=== PATIENT | male | born 1955 | race Caucasian/White ===

== ENCOUNTER 2023-07-16 07:53 | Outpatient (RCR) | payer OTHER, SELFPAY | END 2023-07-16 23:59 | disposition home or self-care (01) | LOC: RPT 07:53 | PROVIDERS: ATTENDING PHYSICIAN Physical Medicine & Rehabilitation; FAMILY PHYSICIAN Family Medicine | DX: I69.320 Aphasia following cerebral infarction (principal); R13.12 Dysphagia, oropharyngeal phase; Z73.6 Limitation of activities due to disability | CPT/HCPCS: 92507; 97530; 97535 ==

== ENCOUNTER → 2023-08-02 13:55 | Outpatient (REF) | payer OTHER, SELFPAY | LOC: RAD 13:55 | PROVIDERS: ATTENDING PHYSICIAN Surgery Vascular Surgery; FAMILY PHYSICIAN Family Medicine | DX: I77.9 Disorder of arteries and arterioles, unspecified (principal) | CPT/HCPCS: 93880; 93922; 93925 ==

== ENCOUNTER 2023-08-17 07:42 | Outpatient (RCR) | payer OTHER, SELFPAY | END 2023-08-17 23:59 | disposition home or self-care (01) | LOC: RPT 07:42 | PROVIDERS: ATTENDING PHYSICIAN Physical Medicine & Rehabilitation; FAMILY PHYSICIAN Family Medicine | DX: I69.320 Aphasia following cerebral infarction (principal); I69.391 Dysphagia following cerebral infarction; R13.12 Dysphagia, oropharyngeal phase | CPT/HCPCS: 92507; 97110; 97530 ==

== ENCOUNTER 2023-09-14 06:39 | Outpatient (RCR) | payer OTHER, SELFPAY | END 2023-09-14 23:59 | disposition home or self-care (01) | LOC: RPT 06:39 | PROVIDERS: ATTENDING PHYSICIAN Physical Medicine & Rehabilitation; FAMILY PHYSICIAN Family Medicine | DX: I63.9 Cerebral infarction, unspecified (principal); Z74.09 Other reduced mobility | CPT/HCPCS: 92507; 97110; 97530; 97535 ==

== ENCOUNTER 2023-10-01 06:58 | Outpatient (RCR) | payer OTHER, SELFPAY | END 2023-10-01 23:59 | disposition home or self-care (01) | LOC: RPT 06:58 | PROVIDERS: ATTENDING PHYSICIAN Physical Medicine & Rehabilitation; FAMILY PHYSICIAN Family Medicine | DX: I69.320 Aphasia following cerebral infarction (principal); R13.12 Dysphagia, oropharyngeal phase; Z73.6 Limitation of activities due to disability | CPT/HCPCS: 92507; 97110; 97535 ==

== ENCOUNTER → 2023-10-15 12:07 | Outpatient (REF) | payer OTHER, SELFPAY | LOC: PET 12:07 | PROVIDERS: ATTENDING PHYSICIAN Urology | DX: C61 Malignant neoplasm of prostate (principal) | CPT/HCPCS: 78815; A9595 ==

== ENCOUNTER 2023-11-19 06:47 | Outpatient (RCR) | payer OTHER, SELFPAY | END 2023-11-19 11:34 | disposition home or self-care (01) | LOC: RPT 06:47 | PROVIDERS: ATTENDING PHYSICIAN Physical Medicine & Rehabilitation; FAMILY PHYSICIAN Family Medicine | DX: I69.320 Aphasia following cerebral infarction (principal); R13.12 Dysphagia, oropharyngeal phase; Z73.6 Limitation of activities due to disability | CPT/HCPCS: 92507; 97010; 97110; 97530; 97535 ==

== ENCOUNTER → 2023-12-06 06:23 | Day surgery (SDC) | payer OTHER, SELFPAY ==
[2023-12-06 07:41] LABS: Glucose - Point of Care 143 mg/dl (70-99)
== END ==
LOC: GI 06:23
PROVIDERS: ATTENDING PHYSICIAN Internal Medicine
DX: Z12.11 Encounter for screening for malignant neoplasm of colon (principal); K57.30 Diverticulosis of large intestine without perforation or abscess without bleeding; K64.8 Other hemorrhoids; K63.5 Polyp of colon; K62.1 Rectal polyp; D12.3 Benign neoplasm of transverse colon; D12.5 Benign neoplasm of sigmoid colon; Z86.010 Personal history of colon polyps
CPT/HCPCS: 45385; 45380; 88305; 82962

== ENCOUNTER → 2023-12-07 07:20 | Outpatient (REF) | payer OTHER, SELFPAY | LOC: MRI 3T 07:20 | PROVIDERS: ATTENDING PHYSICIAN Family Medicine; REFERRING PHYSICIAN Urology | DX: R97.20 Elevated prostate specific antigen [PSA] (principal) | CPT/HCPCS: 72197; A9575 ==

== ENCOUNTER 2024-03-01 16:25 | Emergency (ER) | payer OTHER, SELFPAY ==
[2024-03-01 16:27] VITALS: BP 129/78
[2024-03-01 16:46] VITALS: BP 116/66
[2024-03-01 17:00] VITALS: BP 95/58
[2024-03-01 17:33] LABS: % Basophils 0.5 % (0-2); % Eosinophils 3.1 % (0-6); % Immature Granulocytes 0.5 % (0-0.5); % Lymphocytes 11.8 % (20.5-51.1); % Monocytes 10.6 % (1.7-9.3); % Neutrophils 73.5 % (42.2-75.2); Absolute Eosinophils 0.2 10^3/uL (0-0.7); Absolute Lymphocytes 0.7 10^3/uL (1.2-3.4); Absolute Monocytes 0.6 10^3/uL (0.1-0.6); Absolute Neutrophils 4.3 10^3/uL (1.4-6.5); Hemoglobin 11.3 g/dL (13.0-18.0); Mean Corp Hgb Conc. 34.2 g/dL (33.0-37.0); Mean Corpuscular Hgb 31.5 pg (27.0-31.0); Mean Corpuscular Volume 91.9 fL (80.0-94.0); Mean Platelet Volume 11.2 fL (7.4-10.4); Nucleated Red Blood Cells % 0 % (-); Platelet Count 139 10^3/uL (130-400); Red Blood Cell Count 3.59 10^6/uL (4.70-6.10); Red Cell Dist. Width 15.1 % (11.5-14.5); White Blood Cell Count 5.9 10^3/uL (4.8-10.8)
[2024-03-01 17:52] LABS: ALT (SGPT) 27 U/L (0-50); AST (SGOT) 30 U/L (17-59); Albumin 3.9 g/dl (3.5-5.0); Alkaline Phosphatase 69 U/L (38-126); Blood Urea Nitrogen 21 mg/dl (9-20); Calcium 9.9 mg/dl (8.4-10.2); Carbon Dioxide 26 mmol/L (22-30); Chloride 102 mmol/L (98-107); Glucose 117 mg/dl (70-99); Potassium 4.2 mmol/L (3.5-5.1); Sodium 139 mmol/L (135-145); Total Bilirubin 0.5 mg/dl (0.2-1.3); eGFR > 60.00
[2024-03-01 17:57] LABS: Troponin I 0.019 ng/ml
[2024-03-01 18:00] VITALS: BP 122/84
[2024-03-01 19:00] VITALS: BP 141/59
--- NOTE | 2024-03-01 19:04 | ED.GENMED ---
History of Present Illness
General
Chief Complaint: Fainting/Passed Out
Source: patient, records and spouse
Exam Limitations: none
Time Seen by Provider: 03/01/24 18:33
Nursing documentation reviewed up to this point in time: agreed with
History of Present Illness
History of Present Illness:
Patient is a 68-year-old male who presents to the emergency department after syncopal episodes today. Patient had a stroke 13 months ago and since that time he has had some light sensitivity issues. Patient is out of the sunlight and began to feel
lightheaded. Patient denies diaphoresis or nausea or vomiting. Patient denies any chest pain or palpitations. Patient denied any focal neurologic feelings. Patient was recently put on tamsulosin. Patient is receiving daily radiation for cancer
therapy. Patient also had a estrogens shot. Patient denies any recent fever, chills, nasal congestion, sore throat or cough. Patient denies any GI or symptoms. Patient is also on losartan and metoprolol.
Past History
Past History
ED Past Medical History: Arrthythmia (Atrial fibrillation), CAD, HTN, Hypercholesterolemia, NIDDM, OR and Other (Peripheral vascular disease)
ED Past Surgical History: Appendectomy, Cardiac, Tonsilectomy and Other (Popliteal stent)
Social History
Tobacco: Smoker
Alcohol: None
Personal:
Living: with family
Employment: Employed
Family History
Family History: Other (Reviewed and noncontributory)
Review of Systems
Review of Systems
All Other Systems: ROS reviewed and negative except as documented in HPI and ROS
Constitutional: Reports fatigue; Denies fever or chills
EENT: Reports no symptoms
Respiratory: Reports no symptoms
Cardiac: Reports syncope; Denies chest pain, diaphoresis or palpitations
ABD/GI: Reports anorexia; Denies abdominal pain, nausea, vomiting, diarrhea, bloody stools or black stools
: Reports no symptoms
Musculoskeletal: Reports no symptoms
Skin: Reports no symptoms
Neurological: Reports no symptoms
Hematologic/Lymphatic: Reports no symptoms
Psychiatric: Reports no symptoms
Phy Exam
Physical Exam
Physical Exam:
Physical Exam
General: No apparent distress, alert and appropriate, well nourished, well hydrated
HENT: Normocephalic, supple with no lymphadenopathy, no thyromegaly
Eyes: Clear sclera, conjuctiva without injection
Heart: Regular rhythm and rate. No S3, S4. No murmur. No NVD
Lungs: No respiratory distress, no stridor, lung sounds clear and equal bilaterally
Abdomen: Soft, nontender, no organomegaly, no CVA tenderness, BS good
Neuro: Alert and oriented x 3, CN II - XII intact, no motor focality
Skin: no rash
Psychiatric: well kept. interactive and cooperative
Extremities: No edema, cyanosis, tenderness
Course
Orders/Labs/Results
Orders:
Orders
03/01/24 17:22
Electrocardiogram (*1) Urgent
Reason for Study: Syncope
EKG- Treatment ONCE
03/01/24 17:25
CMP [Comprehensive Metabolic Panel] Urgent
Complete Blood Count/With Diff Urgent
Troponin I Urgent
Abnormal Lab Results
03/01/24
17:25
RBC 3.59 L 10^6/uL
(4.70-6.10)
Hgb 11.3 L g/dL
(13.0-18.0)
Hct 33.0 L %
(39.0-52.0)
MCH 31.5 H pg
(27.0-31.0)
RDW 15.1 H %
(11.5-14.5)
MPV 11.2 H fL
(7.4-10.4)
Absolute Lymphs (auto) 0.7 L 10^3/uL
(1.2-3.4)
Lymphocytes % 11.8 L %
(20.5-51.1)
Monocytes % 10.6 H %
(1.7-9.3)
BUN 21 H mg/dl
(9-20)
Glucose 117 H mg/dl
(70-99)
Total Protein 6.0 L g/dl
(6.3-8.2)
03/01/24 17:25
03/01/24 17:25
Vital Signs
Initial and Last Documented VS:
Initial Vital Signs
Temp Pulse Resp BP Pulse Ox
99.3 F 71 16 129/78 98
03/01/24 16:27 03/01/24 16:27 03/01/24 16:27 03/01/24 16:27 03/01/24 16:27
Last Documented Vital Signs
Temp Pulse Resp BP Pulse Ox
99.3 F 59 18 122/84 99
03/01/24 16:27 03/01/24 18:15 03/01/24 18:15 03/01/24 18:00 03/01/24 18:15
*Radiology
Radiology exam reviewed: other (na)
*Pulse Oximetry
Patient hypoxic: no
*EKG
Interpreted by ED Provider?: Yes
EKG Intrepretation Date: 03/01/24
EKG Intrepretation Time: 19:11
Interpretation: abnormal
Comparison EKG: no changes
Heart Rate: 58
Rate: bradycardiac
Rhythm: sinus
[place]: normal axis
Interval: normal interval
QRS Pattern: right bundle branch block
Ischemia: non-specific ST changes
*[employer] Administrator Interpretation
Rate: normal
Interpretation: normal
Heart Rate: 61
Rhythm: sinus
*Critical Care Note
Total Time (30-74mins, 75-104mins- exclusive of procedures): Not Applicable
Update Note
Update Note:
Patient is on losartan 25 mg as well as metoprolol 25 mg and recently started on tamsulosin. Patient stated tamsulosin this morning. Patient does not eat or drink much before radiation every day. Patient's been encouraged to increase fluid.
Patient is currently cut his metoprolol in half and take the tamsulosin at bedtime. Believe the syncope is due to overmedication and dehydration.
ED Attending Note
-
Portions of this chart may have been created with voice recognition software.� Occasional wrong word or��sound alike� substitutions may have occurred due to the inherent limitations of voice recognition software.
Discharge Plan
Departure
Patient Disposition: Home (Routine Discharge)
Date of Disposition: 03/01/24
Time of Disposition: 19:14
Patient with high blood pressure during this ER visit?: No
Condition: Good
Covid-19: Not Applicable
Discharge Problem:
Syncope
Instructions: Syncope (Fainting) (DC)
Prescriptions:
No Action
acetaminophen 325 mg Tablet
650 mg PO Q6HPRN PRN (Reason: mild pain/ fever>100.5F) Qty: 0 0RF
lidocaine 4 % Adhesive Patch,Medicated
1 patch topical DAILY Qty: 30 0RF
multivitamin with folic acid [Tab-A-Terry] 400 mcg Tablet
1 tab PO DAILY Qty: 30 0RF
pantoprazole 20 mg Tablet,Delayed Release (Dr/Ec)
20 mg PO DAILY Qty: 30 0RF
atorvastatin 40 mg Tablet
40 mg PO QPM Qty: 30 0RF
metformin 500 MG tablet
500 mg PO BID@0800,1700 Qty: 60 0RF
Rx Instructions:
E11.65
clopidogrel 75 mg tablet
75 mg PO DAILY Qty: 30 0RF
metoprolol succinate 25 MG tablet extended release 24 hr
12.5 mg PO DAILY Qty: 30 0RF
Patient Comments:
resume on 02/10/23 until seen by cardiology, has been bradycardic
Eliquis 5 mg Tablet
5 mg PO BID Qty: 60 0RF
Referrals:
UNKNOWN - PT DOES,NOT KNOW [Unknown Provider] -
Activity Restrictions/Additional Instructions:
Take the tamsulosin before bed. Take metoprolol 12.5 mg. Make sure to drink plenty of fluids. Any problems please return.
Interventions
Interventions:
*Risk Screen - Suicide Last Done: 03/01/24 16:25
*General Assessment Last Done: 03/01/24 16:27
ED- Fall Risk Assessment Last Done: 03/01/24 16:27
*ED COVID-19 Vaccine History Last Done: 03/01/24 16:27
ED- Cardiac Assessment Last Done: 03/01/24 18:29
ED- Neurological Assessment Last Done: 03/01/24 18:29
Discharge Date and Time
Print Language: SWEDISH
== END 2024-03-01 20:04 | disposition home or self-care (01) ==
LOC: EMR 16:25
PROVIDERS: EMERGENCY PHYSICIAN Emergency Medicine; FAMILY PHYSICIAN Family Medicine
DX: R55 Syncope and collapse (principal); I48.91 Unspecified atrial fibrillation; I25.10 Atherosclerotic heart disease of native coronary artery without angina pectoris; I10 Essential (primary) hypertension; E78.00 Pure hypercholesterolemia, unspecified; E11.51 Type 2 diabetes mellitus with diabetic peripheral angiopathy without gangrene; I25.2 Old myocardial infarction; I45.10 Unspecified right bundle-branch block; F17.200 Nicotine dependence, unspecified, uncomplicated; Z86.73 Personal history of transient ischemic attack (TIA), and cerebral infarction without residual deficits; Z90.49 Acquired absence of other specified parts of digestive tract; Z95.5 Presence of coronary angioplasty implant and graft
CPT/HCPCS: 99283; 80053; 84484; 85025; 93005

== ENCOUNTER → 2024-04-10 12:49 | Outpatient (REF) | payer OTHER, SELFPAY | LOC: RAD 12:49 | PROVIDERS: ATTENDING PHYSICIAN Surgery Vascular Surgery; FAMILY PHYSICIAN Family Medicine | DX: I65.29 Occlusion and stenosis of unspecified carotid artery (principal); I73.9 Peripheral vascular disease, unspecified | CPT/HCPCS: 93880; 93922; 93925 ==

== ENCOUNTER → 2024-11-01 06:23 | Outpatient (REF) | payer OTHER, SELFPAY | LOC: RAD 06:23 | PROVIDERS: ATTENDING PHYSICIAN Registered Nurse; FAMILY PHYSICIAN Family Medicine | DX: I65.29 Occlusion and stenosis of unspecified carotid artery (principal); I73.9 Peripheral vascular disease, unspecified | CPT/HCPCS: 93880; 93922; 93925 ==

== ENCOUNTER → 2024-12-20 07:43 | Outpatient (REF) | payer OTHER, SELFPAY | LOC: RCS 07:43 | PROVIDERS: ATTENDING PHYSICIAN Internal Medicine Cardiovascular Disease; FAMILY PHYSICIAN Family Medicine | DX: R94.31 Abnormal electrocardiogram [ECG] [EKG] (principal); I48.0 Paroxysmal atrial fibrillation; I25.10 Atherosclerotic heart disease of native coronary artery without angina pectoris; Z95.1 Presence of aortocoronary bypass graft | CPT/HCPCS: 93306 ==

== ENCOUNTER → 2025-05-29 07:27 | Outpatient (REF) | payer OTHER, SELFPAY | LOC: RAD 07:27 | PROVIDERS: ATTENDING PHYSICIAN Registered Nurse; FAMILY PHYSICIAN Family Medicine | DX: I73.9 Peripheral vascular disease, unspecified (principal) | CPT/HCPCS: 93922; 93925 ==

== ENCOUNTER → 2025-06-15 07:46 | Outpatient (REF) | payer OTHER, SELFPAY | LOC: RCS 07:46 | PROVIDERS: ATTENDING PHYSICIAN Internal Medicine Cardiovascular Disease; FAMILY PHYSICIAN Family Medicine | DX: I77.810 Thoracic aortic ectasia (principal) | CPT/HCPCS: 93306 ==